=== PATIENT | male | born 1970 | race African-American/Black ===

== ENCOUNTER 2023-02-02 14:40 | Emergency (ER) | payer MEDICAID, SELFPAY ==
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
[2023-02-02 14:44] VITALS: BP 134/93; PULSE 71; RESP 18; TEMP 36.5; O2SAT 98
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
[2023-02-02] MEDS: oxyCODONE/ACETAMINOPHEN (*CRX) 5-325 MG TABLET 1 TABLET PO (16:11)
[2023-02-02 16:25] VITALS: BP 139/98; PULSE 76; RESP 16; O2SAT 98
[2023-02-02] MEDS: SODIUM CHLORIDE 0.9% IV 1,000 ML 999 ML IV CONT (17:15)
[2023-02-02] MEDS: TETANUS,DIPHTHERIA,AC PERTUSSIS ADULT (0.5 ML) BOOSTRIX IM (17:17)
[2023-02-02 17:47] VITALS: BP 129/89; PULSE 67; RESP 16; O2SAT 98
[2023-02-02 18:19] VITALS: BP 138/95; PULSE 65; RESP 16; O2SAT 99
== END 2023-02-02 18:24 | disposition home or self-care (01) ==
PROVIDERS: Emergency Provider Preventive Medicine Aerospace Medicine
DX: S00.83XA Contusion of other part of head, initial encounter (principal); S20.212A Contusion of left front wall of thorax, initial encounter; Z23 Encounter for immunization; J45.909 Unspecified asthma, uncomplicated; F17.200 Nicotine dependence, unspecified, uncomplicated; Y04.2XXA Assault by strike against or bumped into by another person, initial encounter
CPT/HCPCS: 70450; 70486; 71250; 72125; 72128; 72131; 74176; 90471; 90715; 96360; 99284; A9270; J7030